=== PATIENT | female | born 1945 ===

== ENCOUNTER 2022-09-05 09:00 | Outpatient (NON) | payer MEDICARE, OTHER, SELFPAY | END 2022-09-05 09:01 | disposition home or self-care (01) | PROVIDERS: Visit Provider Surgery Plastic and Reconstructive Surgery | DX: C43.39 Malignant melanoma of other parts of face (principal) | CPT/HCPCS: 88305 ==

== ENCOUNTER 2022-12-27 08:00 | Outpatient (NON) | payer MEDICARE, OTHER, SELFPAY | END 2022-12-27 08:01 | disposition home or self-care (01) | PROVIDERS: Visit Provider Surgery Plastic and Reconstructive Surgery | DX: D48.5 Neoplasm of uncertain behavior of skin (principal) | CPT/HCPCS: 88305 ==

== ENCOUNTER 2023-03-28 10:34 | Outpatient (NON) | payer MEDICARE, OTHER, SELFPAY | END 2023-03-28 10:35 | disposition home or self-care (01) | LOC: ANHLAB 03-29 10:38 | PROVIDERS: Visit Provider Nurse Practitioner | DX: D03.9 Melanoma in situ, unspecified (principal) | CPT/HCPCS: 88305 ==